=== PATIENT | male | born 1990 | race Caucasian/White ===

== ENCOUNTER 2022-06-04 02:37 | Emergency (ER) | payer OTHER ==
[~2022-06-04] VITALS: Ht 177.8 cm; Wt 136.4 kg
[2022-06-04 02:38] VITALS: BP 147/90
[2022-06-04] MEDS ORDERED: LIDOCAINE 1% 10 ML VIAL ID ONE (03:00)
[2022-06-04] MEDS ORDERED: PERTUSS(ACELL),DIPH,TET VAC/PF 0.5 ML SYRINGE IM. ONE (03:15)
== END 2022-06-04 04:38 | disposition home or self-care (01) ==
LOC: EMS 02:41
DX: S61.210A Laceration without foreign body of right index finger without damage to nail, initial encounter (principal); W26.0XXA Contact with knife, initial encounter; Y93.89 Activity, other specified; Y92.511 Restaurant or cafe as the place of occurrence of the external cause; Y99.0 Civilian activity done for income or pay
CPT/HCPCS: 99283; 90715; 90471; 12002; J3490

== ENCOUNTER 2022-06-19 00:15 | Emergency (ER) | payer OTHER ==
[~2022-06-19] VITALS: Ht 177.8 cm; Wt 136.4 kg
[2022-06-19 00:18] VITALS: BP 131/88
== END 2022-06-19 00:53 | disposition home or self-care (01) ==
LOC: EMS 00:16
DX: Z48.02 Encounter for removal of sutures (principal)
CPT/HCPCS: 99281; Z7502